=== PATIENT | female | born 1965 | race Caucasian/White ===

== ENCOUNTER → 2018-04-27 | Outpatient (CLI) | payer OTHER | LOC: COL.RAD 09:58 | DX: M17.12 Unilateral primary osteoarthritis, left knee (principal); M67.52 Plica syndrome, left knee | CPT/HCPCS: Q9967 ==

== ENCOUNTER 2023-11-03 04:21 | Emergency (ER) | payer OTHER ==
[~2023-11-03] VITALS: Ht 160 cm; Wt 104.5 kg
[2023-11-03 04:44] LABS: BASO % 0.5 % (0.0-2.0); EOS # 0.2 K/mm3 (0.0-0.7); EOS % 2.6 % (0.0-4.0); GRAN # 5.5 K/mm3 (1.4-6.5); GRAN % 63.4 % (42.2-75.2); HEMATOCRIT 44.3 % (37.0-47.0); HEMOGLOBIN 14.9 g/dl (12.5-16.0); LYMPH # 2.2 K/mm3 (1.2-3.4); MEAN CELL VOLUME 84 fl (80.0-100.0); MEAN CORPUSCULAR HEMOGLOBIN 28 pg (27-31); MEAN CORPUSCULAR HGB CONC 34 g/dl (33.0-37.0); MEAN PLATELET VOLUME 10.7 fl (7.4-10.4); MONO # 0.6 K/mm3 (0.1-0.6); MONO % 7.3 % (1.7-9.3); PLATELET COUNT 242 K/mm3 (130-400); RED BLOOD COUNT 5.25 M/mm3 (4.10-5.30); REDCELL DISTRIBUTION WIDTH-CV 13.5 % (11.5-14.5)
[2023-11-03] MEDS ORDERED: Ketorolac 15 MG/ML VIAL IV ONE (04:45)
[2023-11-03 04:54] LABS: COLLECTION METHOD CLEAN CATCH
[2023-11-03 05:08] LABS: URINE APPEARANCE CLOUDY (CLEAR/HAZY); URINE BLOOD 3+ (NEGATIVE); URINE COLOR YELLOW (YELLOW); URINE GLUCOSE NEGATIVE (NEGATIVE); URINE KETONE TRACE (NEGATIVE); URINE NITRATE NEGATIVE (NEGATIVE); URINE PROTEIN(semi-quant) 1+ (NEGATIVE)
[2023-11-03 05:09] LABS: ALBUMIN 4.5 g/dL (3.5-5.0); BILIRUBIN,TOTAL 0.8 mg/dL (0.2-1.2); CALCIUM 9.9 mg/dL (8.4-10.2); CREATININE, serum 0.84 mg/dL (0.57-1.11); POTASSIUM 4.5 mEq/L (3.5-4.5)
[2023-11-03 05:15] LABS: URINE RBC >50 /hpf (0-2); URINE WBC 0-2 /hpf (0-2)
[2023-11-03 05:16] LABS: AMORPHOUS CRYSTAL PRESENT (NOT PRESENT); SQUAMOUS EPITHELIAL 0-2 /hpf (0-10); URINE BACTERIA RARE /hpf (NONE SEEN); URINE CALCIUM OXALATE CRYSTAL PRESENT (NOT PRESENT)
[2023-11-03] MEDS ORDERED: Iohexol 300 - 100 ML VIAL IV ONE (05:39)
[2023-11-03] MEDS ORDERED: NS 50 ML IV SCH (05:39)
[2023-11-03] MEDS ORDERED: FLOMAX 0.40.4 MG/CAP PO (06:23)
[2023-11-03] MEDS ORDERED: TORADOL 10MG TA10 MG PO (06:23)
[2023-11-03 06:37] VITALS: BP 122/73; PULSE 77; TEMP 97.9
== END 2023-11-03 06:42 | disposition home or self-care (01) ==
LOC: COL.ER 04:21
PROVIDERS: Emergency Medicine
DX: N13.2 Hydronephrosis with renal and ureteral calculous obstruction (principal); Z87.442 Personal history of urinary calculi
CPT/HCPCS: J1885; Q9967